=== PATIENT | male | born 1970 | race Two or more races ===

== ENCOUNTER 2019-06-14 09:50 | Emergency (ER) | payer BC ==
[~2019-06-14] VITALS: Ht 172.7 cm; Wt 86.2 kg
[2019-06-14 10:01] VITALS: BP 128/83
[2019-06-14] MEDS ORDERED: ASPirin 81 mg TAB PO ONE (11:15)
[2019-06-14 11:41] LABS: Basophils # (auto) 0.1 uL; Basophils % (auto) 0.9 % (0.0-2.0); Eosinophils # (auto) 0.2 uL; Eosinophils % (auto) 3.9 % (0.0-7.0); Hematocrit 45.6 % (41.0-53.0); Hemoglobin 15.8 g/dL (13.5-17.5); Lymphocytes # (auto) 2.4 uL; Lymphocytes % (auto) 42.4 % (10.0-50.0); Mean Corpuscular Hemoglobin 30.7 pg (28.0-32.0); Mean Corpuscular Hgb Conc. 34.6 g/dL (32.0-36.0); Mean Corpuscular Volume 88.8 fL (80.0-100.0); Monocytes # (auto) 0.4 uL; Monocytes % (auto) 7.1 % (0.0-12.0); Neutrophils # (auto) 2.6 uL; Neutrophils % (auto) 45.7 % (37.0-80.0); Nucleated Red Blood Cells % 0.1 %; Platelet Count (auto) 224 10^3/uL (140-450); Red Blood Cells 5.13 10^6/uL (4.5-5.90); Red Cell Distribution Width 12.7 % (11.8-14.3); White Blood Cell 5.7 10^3/uL (4.4-10.8)
[2019-06-14 11:59] LABS: Albumin 3.8 g/dL (3.4-5.0); Anion Gap 2 (5-15); Blood Urea Nitrogen 16 mg/dL (7-18); Calcium 8.7 mg/dL (8.5-10.1); Carbon Dioxide 28 mmol/L (21-32); Chloride 110 mmol/L (98-107); Glucose 92 mg/dL (74-106); Potassium 4.1 mmol/L (3.5-5.1); Sodium 140 mmol/L (136-145)
[2019-06-14 12:04] LABS: Alanine Aminotransferase 31 U/L (16-61); Alkaline Phosphatase 72 U/L (45-117); Aspartate Aminotransferase 19 U/L (15-37); BUN/Creatinine Ratio 17.6; GFR African American 115 mL/min; GFR Non-African American 95 mL/min; Total Protein 7.3 g/dL (6.4-8.2)
== END 2019-06-14 16:08 | disposition home or self-care (01) ==
LOC: ER 09:56
DX: F41.9 Anxiety disorder, unspecified (principal); M79.10 Myalgia, unspecified site; F12.10 Cannabis abuse, uncomplicated
CPT/HCPCS: 36415; 71046; 80053; 84484; 85025; 93005